=== PATIENT | male | born 1945 | race Caucasian/White ===

== ENCOUNTER 2018-09-13 00:15 | Inpatient (IN) | payer MEDICARE ==
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
[2018-09-13] MEDS ORDERED: ASPIRIN81 MG PO (02:32)
[2018-09-13] MEDS ORDERED: COREG 3.1253.125 MG PO (02:33)
[2018-09-13] MEDS ORDERED: CELEXA10 MG PO (02:33)
[2018-09-13] MEDS ORDERED: FOLATE0.4 MG PO (02:35)
[2018-09-13] MEDS ORDERED: FLUTICASONE PRO16 GM NASAL (02:35)
[2018-09-13] MEDS ORDERED: LISINOPRIL2.5 MG PO (02:36)
[2018-09-13] MEDS ORDERED: CLARITIN 10 MG10 MG PO (02:36)
[2018-09-13] MEDS ORDERED: VITAMIN D31000 UNIT PO (02:37)
[2018-09-13] MEDS ORDERED: TRAZODONE HCL150 MG PO (02:37)
[2018-09-13 06:13] LABS: BASOPHILS 0.2 % (0-2); EOSINOPHILS 6.3 % (0-7); HEMATOCRIT 34.8 % (42.0-54.0); HEMOGLOBIN 11.5 g/dL (13.5-17.5); LYMPHOCYTES 44.6 % (15-50); MCH 29.3 pg (26.0-34.0); MCV 88.8 fL (80.0-100.0); MEAN PLATELET VOLUME 10.3 fL (7.4-10.4); MONOCYTES 7.5 % (2-11); NEUTROPHILS 41.4 % (40-80); PLATELET COUNT 184 10x3/uL (130-400); RBC 3.92 10x6/uL (4.20-6.10); RDW 16.5 % (11.5-14.5)
[2018-09-13 06:36] LABS: ALBUMIN 2.9 g/dL (3.4-5.0); BILIRUBIN - TOTAL 0.55 mg/dL (0.2-1.3); CALCIUM 8.8 mg/dL (8.5-10.1); CARBON DIOXIDE 25.9 mmol/L (21.0-32.0); CHOL - HDL RATIO 4.4 ratio (2.3-4.9); CREATININE - SERUM 1.2 mg/dL (0.6-1.3); LDL-HDL RATIO 2.7 ratio (1.5-3.5); POTASSIUM - SERUM 3.9 mmol/L (3.5-5.1); PROTEIN - SERUM 6.7 g/dL (6.4-8.2); THYROID STIMULATING HORMONE 3.05 uIU/mL (0.36-3.74)
[2018-09-13 07:00] VITALS: BP 125/64
--- NOTE | 2018-09-13 07:30 | NUR ---
REC'D PT STANDING BY THE NURSES DESK. PT IS ALERT AND ORIENTED TO PERSON. PT BECOMES AGGRESSIVE WITH STAFF EASILY AT TIMES. PT IS VERY CONFUSED. CALM AND COOPERATIVE WITH ASSESSMENT AT THIS TIME. MED COMPLIANT. FALL PRECAUTIONS IN PLACE. WILL CPOC.
[2018-09-13 08:22] VITALS: BP 125/64
--- NOTE | 2018-09-13 13:39 | NUR ---
PATIENT BECAME VERBALLY AGGRESSIVE WITH STAFF. PACING, CURSING AT STAFF, ATTEMPTING TO ELOPE FROM UNIT. STAFF ATTEMPT TO REDIRECT PATIENT. PATIENT UNREDIRECTABLE AT THIS TIME. ATIVAN 0.2 MG AND HALDOL 2 MG IM IN LDG PER DR. CUMMINS ORDER. WILL REASSESS Q 1 HOUR FOR EFFECTIVENESS.
--- NOTE | 2018-09-13 14:30 | NUR ---
PRN MILDLY EFFECTIVE. PT IS CALMER AT THIS TIME SITTING AT DINING ROOM TABLE LOOKING AT NEWSPAPER. WILL CPOC.
[2018-09-13 20:56] VITALS: BP 124/50
--- NOTE | 2018-09-14 00:56 | NUR ---
RECEIVED IN DAYROOM. SITTING IN A CHAIR WITH PEERS AT HIS SIDE. CONFUSED. NO SIGNS OF AGGRESSION. CALM AND COOPERATIVE WITH CARE AND ASSESSMENT. REDIRECT AND REORIENT NEEDED. RESTING IN BED WITH EYES CLOSED AT THIS TIME. CONTINUE PLAN OF CARE
[2018-09-14 07:41] VITALS: BMI 22.8
[2018-09-14 09:52] VITALS: BMI 22.8
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
--- NOTE | 2018-09-14 16:33 | NUR ---
HALDOL 2 MG AND ATIVAN 0.5 MG IM GIVEN FOR AGGRESSION OF HITTING STAFF WITH REDIRECTION.
--- NOTE | 2018-09-14 19:54 | NUR ---
RECEIVED IN DAYROOM. RESTING IN A CHAIR WITH PEERS AT HIS SIDE. CALM AND COOPERATIVE WITH CARE AND ASSESSMENT. NO SIGNS OF AGGRESSION. REDIRECT AND REORIENT NEEDED. SITTING QUIETLY AT THIS TIME. CONTINUE PLAN OF CARE
[2018-09-14 20:00] VITALS: BP 124/56
[2018-09-15 05:12] LABS: VITAMIN D 25 HYDROXY 25.9 ng/mL (30.0-100.0)
[2018-09-15 07:21] LABS: RAPID PLASMA REAGIN Non Reactive (Non Reactive)
[2018-09-15 08:30] VITALS: BP 132/65
--- NOTE | 2018-09-15 11:55 | NUR ---
RECEIVED PATIENT IN DINING ROOM, SITTING ON COUCH, EYES CLOSED, AROUSES EASILY TO VERBAL STIMULI, NO AGGRESSION NOTED. MEDS ADMIN PER MED NURSE. COOPERATIVE WITH CARE AND GROUP THERAPY. CONT POC INCLUDING MEDS AND GROUP THERAPY DIRECTED.
--- NOTE | 2018-09-15 13:17 | PN ---
PATIENT:JAYLAN ORNELAS MEDICAL RECORD: [id number] LOCATION:SHOBHA Perera ADMISSION DATE: 09/13/18 PROGRESS NOTE DATE OF SERVICE: 09/14/2018 SUBJECTIVE: The patient's case was discussed with staff. He has no new complaint. OBJECTIVE: The patient denies intent to harm himself or others. He does tolerate his medicines well. ASSESSMENT: Senile dementia of the Alzheimer's type with behavioral disturbances. PLAN: The patient will be maintained on current medicines, which have been reviewed. His long-term prognosis is guarded. Both supportive and educational interventions were made. I am going to give him a low dose of Klonopin in addition to his scheduled medicines to assist with his agitation. TRANSINT:[id number] Voice Confirmation ID: [id number] DOCUMENT ID: [id number] WAYLON CUMMINS MD at 1317 CC: [id number] DICTATION DATE: 09/14/18 1617 PRESCHOOL PRINCIPAL: 09/14/18 1908 ADM IN [facility] [address] [place] [address]
[2018-09-15 17:08] LABS: FOLATE (FOLIC ACID) - SERUM 16.5 ng/mL (>3.0)
[2018-09-15 20:00] VITALS: BP 115/55
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
--- NOTE | 2018-09-15 23:30 | NUR ---
RESTING IN A RECLINER OUTSIDE OF NURSES STATION WITH EYES CLOSED AT THIS TIME.
--- NOTE | 2018-09-16 10:00 | NUR ---
AWAKE AND ALERT WITH CONFUSION NOTED. CALM AND COOPERATIVE WITH CARE AND ASSESSMENT. MEDICATION COMPLIANT. NO AGGRESSION NOTED. REDIRECT AND REORIENTED NEEDED. WILL CONTINUE PLAN OF CARE.
[2018-09-16 10:16] VITALS: BP 136/65
--- NOTE | 2018-09-16 13:27 | PN ---
PATIENT:JAYLAN ORNELAS MEDICAL RECORD: [id number] LOCATION:SHOBHA Perera ADMISSION DATE: 09/13/18 PROGRESS NOTE DATE OF SERVICE: 09/15/2018 SUBJECTIVE: The patient's case was discussed with staff. He has no new complaint. OBJECTIVE: The patient denies intent to harm himself or others. He is tolerating his medicines well. He is eating adequately. He did require p.r.n. medication yesterday because of some agitation, but seems calmer today. ASSESSMENT: Senile dementia of the Alzheimer's type with behavioral disturbances. PLAN: The patient is going to be treated with a low dose of Trilafon to assist with thought disorganization. He will be monitored for clinical changes associated with its use. TRANSINT:[id number] Voice Confirmation ID: [id number] DOCUMENT ID: [id number] WAYLON CUMMINS MD at 1327 CC: [id number] DICTATION DATE: 09/15/18 1331 RETAIL SALES ADVISOR: 09/15/18 1404 ADM IN [id number] [place] [address]
--- NOTE | 2018-09-16 16:52 | NUR ---
ATIVAN 0.5 MG AND HALDOL 2 MG IM GIVEN FOR AGRESSION, HITTING AND SCRATCHING STAFF WITH REDIRECTION. HE IS PACING AROUND THE UNIT.
--- NOTE | 2018-09-16 20:52 | NUR ---
PATIENT IS CONFUSED, AGGRESSIVE AT TIMES, PT. ON NEURO CHECKS THIS EVENING UNTIL 2144, NEURO IS NORMAL. COMPLIANT WITH MEDS. WILL FOLLOW POC
[2018-09-16 21:07] VITALS: BP 101/52
--- NOTE | 2018-09-17 11:24 | NUR ---
B) The patient is awake and alert, he has poor insight into his situation. He is oriented to himself. I) Provide prescribed meds. R) He ambulates fast at times and has nearly fallen from loss of balance. He is compliant with meds. P) Continue POC.
--- NOTE | 2018-09-17 13:07 | NUR ---
The patient was leaning over close to the floor, he was inches away from the floor and he hit his head. He does have a red area to the top of his head on the left side.
--- NOTE | 2018-09-17 13:22 | NUR ---
Called Dr. Maurer did let him be aware of the patient's fall, also called Duarte Aguilar and left a message.
--- NOTE | 2018-09-17 14:55 | PN ---
PATIENT:JAYLAN ORNELAS MEDICAL RECORD: [id number] LOCATION:SHOBHA Perera ADMISSION DATE: 09/13/18 PROGRESS NOTE DATE OF SERVICE: 09/16/2018 SUBJECTIVE: The patient's case was discussed with staff. He has no new complaint. OBJECTIVE: The patient denies intent to harm himself or others. He is tolerating his medicines reasonably well. He is very poorly oriented. ASSESSMENT: No change in diagnoses. PLAN: The patient did require p.r.n. medication yesterday. With the changes that have been made since admission, I do not think they have had an opportunity to become effective fully, but I think that the Trilafon is not going to be sufficiently strong to control his behaviors, so I am going to discontinue it and start him on a low dose of Geodon for his disruptive behaviors. It will be my plan to gradually taper him off of the Klonopin and treat him with the Geodon for his behavior problems. TRANSINT:[id number] Voice Confirmation ID: [id number] DOCUMENT ID: [id number] WAYLON CUMMINS MD at 1455 CC: [id number] DICTATION DATE: 09/16/18 1330 LOGISTICS INTERN: 09/16/18 1340 ADM IN [id number] [place] [address]
--- NOTE | 2018-09-17 15:29 | NUR ---
The patient is getting agitated, he wants to get up and walk, but he has fallen today. Ativan 0.5 mg PO provided at this time to help him with his anxiety.
--- NOTE | 2018-09-17 16:00 | NUR ---
The patient is not showing any aggression at this time. He is calmer now.
[2018-09-17 20:43] VITALS: BP 115/52
--- NOTE | 2018-09-17 22:13 | NUR ---
PATIENT IS CONFUSED, AGGRESSIVE AT TIMES, CALM AT THIS TIME, DUE TO HAVING HAD A "PRN" EARLIER. ASSISTED WITH BEDTIME ROUTINE. COMPLIANT WITH MEDS. WILL FOLLOW POC
--- NOTE | 2018-09-18 07:20 | NUR ---
B) The patient is awake and alert, he is ambulating. He is oriented to name only and has poor insight into his situation. He is more steady this am. He is not bending over and walking fast today. He is calm and not showing aggression today. I) Provide prescribed meds. R) The patient is compliant with meds. P) Continue POC.
[2018-09-18 09:40] VITALS: BP 105/61
--- NOTE | 2018-09-18 12:46 | NUR ---
The patient is awake and he has been calm and pleasant for all of the morning. He is now becoming agitated without any provocation. He did try to open the Occupational Health Nurse Supervisor door and the Outcomes Specialist door. The MHT walked by him and he swung at her. Dwain Myers RN asked him how he is doing and he said "F-off." He came to the day room and told this nurse to "F-off." He did not want to be redirected or settle down. Before he became more aggressive did provide him Ativan 0.5 mg and Haldol 2 mg IM.
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
--- NOTE | 2018-09-18 15:38 | PN ---
PATIENT:JAYLAN ORNELAS MEDICAL RECORD: [id number] LOCATION:SHOBHA Perera ADMISSION DATE: 09/13/18 PROGRESS NOTE DATE OF SERVICE: 09/17/2018 SUBJECTIVE: The patient's case was discussed with staff. He has no new complaint. OBJECTIVE: The patient is sleeping reasonably well. He has not been agitated or aggressive today, but I think he may be slightly sedated. ASSESSMENT: Senile dementia of the Alzheimer's type with behavioral disturbances. PLAN: I am going to discontinue the patient's trazodone and may well reduce or even change the scheduled Geodon tomorrow. TRANSINT:[id number] Voice Confirmation ID: [id number] DOCUMENT ID: [id number] WAYLON CUMMINS MD at 1538 CC: [id number] DICTATION DATE: 09/17/18 1509 MANAGER SHIPPING: 09/17/18 1532 ADM IN [facility] [address] [place] [address]
[2018-09-18 20:28] VITALS: BP 98/50
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
--- NOTE | 2018-09-19 08:48 | NUR ---
B) The patient is still sleepy this am from a prn he received last shift. He is calm this am, he only knows his name. He has poor insight into his situation. He ambulates but needs assist as he is unsteady. He refuses a walker and does not want assist most of the time. I) Provide prescribed meds. R) The patient is compliant with meds. P) Continue POC.
[2018-09-19 09:29] VITALS: BP 133/55
--- NOTE | 2018-09-19 11:54 | PN ---
PATIENT:JAYLAN ORNELAS MEDICAL RECORD: [id number] LOCATION:SHOBHA Perera ADMISSION DATE: 09/13/18 PROGRESS NOTE DATE OF SERVICE: 09/18/2018 SUBJECTIVE: The patient's case was discussed with staff. He has no new complaint. OBJECTIVE: The patient denies intent to harm himself or others. He tolerates his medicines reasonably well. Unfortunately, he was agitated earlier today and did receive p.r.n. medication. That would be the first time in several days and so I am going to treat it as an isolated event unless it happens again. ASSESSMENT: Senile dementia of the Alzheimer's type with behavioral disturbances. PLAN: Current medicines and therapies have been reviewed and will be maintained. TRANSINT:[id number] Voice Confirmation ID: [id number] DOCUMENT ID: [id number] WAYLON CUMMINS MD at 1154 CC: [id number] DICTATION DATE: 09/18/18 1621 DIRECTOR SPECIAL EDUCATION: 09/18/18 2254 ADM IN [id number] [place] [address]
--- NOTE | 2018-09-20 00:13 | NUR ---
B.) Patient is more pleasant today. No signs of aggression toward staff members. I.) Provided PM medications. Educated on avoiding falls. R.) Patient consented to all PM Medications. P.) Continue Plan of Care
[2018-09-20 07:00] VITALS: BP 105/56
--- NOTE | 2018-09-20 13:01 | PN ---
PATIENT:JAYLAN ORNELAS MEDICAL RECORD: [id number] LOCATION:SHOBHA Perera ADMISSION DATE: 09/13/18 PROGRESS NOTE DATE OF SERVICE: 09/19/2018 SUBJECTIVE: The patient's case was discussed with staff. He has no new complaint. OBJECTIVE: The patient is in good behavioral control with limited insight about his condition. He is sleeping and eating reasonably well. ASSESSMENT: Senile dementia of the Alzheimer's type with behavioral disturbances. PLAN: Current medicines and therapies have been reviewed, both will be maintained. Long-term prognosis is guarded. TRANSINT:[id number] Voice Confirmation ID: [id number] DOCUMENT ID: [id number] WAYLON CUMMINS MD at 1301 CC: [id number] DICTATION DATE: 09/19/18 1202 STEEL PLACER: 09/19/18 1234 ADM IN [id number] [place] [address]
--- NOTE | 2018-09-20 18:12 | NUR ---
ORIENTED TO SELF ONLY.FREQUENTLY OBSERVED SMILING.NO AGGRESSION OBSERVED TODAY.COMPLIANT WITH STAFF AND MEDS.WILL CONTINUE WITH PLAN OF CARE,MONITOR FOR CHANGES AND SAFETY.
[2018-09-20 23:14] VITALS: BP 130/80
--- NOTE | 2018-09-20 23:25 | NUR ---
B.) Patient has been pleasant. Patient is alert and oriented to person and situation. I.) Provided PM medications. R.) Compliant with PM medications. P.) Continue Plan of Care
[2018-09-21 07:00] VITALS: BP 108/56
--- NOTE | 2018-09-21 09:00 | NUR ---
PATIENT IS AWAKE AND ORIENTED TO SELF ONLY. CALM AND COOPERATOVE WITH CARE AND ASSESSMENT. MEDIOCATION COMPLIANT. WILL CONTINUE PLAN OF CARE.
--- NOTE | 2018-09-21 12:22 | NUR ---
Nutrition follow up Regular diet with 56% average po intake past 3 days Pt usually eats well however pt had 0% documented for all meals on 09/19 Weight 141lb-stable BM yesterday RD following
--- NOTE | 2018-09-21 15:13 | PN ---
PATIENT:JAYLAN ORNELAS MEDICAL RECORD: [id number] LOCATION:SHOBHA Perera ADMISSION DATE: 09/13/18 PROGRESS NOTE DATE OF SERVICE: 09/20/2018 SUBJECTIVE: The patient's case was discussed with staff. He has no new complaint. OBJECTIVE: The patient is tolerating his medicines well. He has no thoughts of harming himself or others. ASSESSMENT: Senile dementia of the Alzheimer's type. PLAN: Current medicines have been reviewed and will be maintained. Long-term prognosis is guarded. TRANSINT:[id number] Voice Confirmation ID: [id number] DOCUMENT ID: [id number] WAYLON CUMMINS MD at 1513 CC: [id number] DICTATION DATE: 09/20/18 1303 SALES OPERATIONS SPECIALIST: 09/20/18 1640 [facility] IN [address] [place] [address]
--- NOTE | 2018-09-21 20:19 | NUR ---
RECEIVED IN DAYROOM. WALKING ABOUT SOCIALIZING. VERY CONFUSED. CALM AND COOPERATIVE WITH CARE AND ASSESSMENT. NO SIGNS OF AGGRESSION. REDIRECT AND REORIENT NEEDED. CONTINUES TO WALK ABOUT. CONTINUE PLAN OF CARE
[2018-09-22 05:15] VITALS: BP 117/62
--- NOTE | 2018-09-22 11:00 | NUR ---
PATIENT IS AWAKE AND ALERT TO PERSON ONLY. PLEASANT AND COOPERATIVE WITH CARE AND ASSESSMENT. NO AGGRESSION NOTED. MEDICATION COMPLIANT. REDIRECT AND REORIENT NEEDED. WILL CONTINUE PLAN OF CARE.
[2018-09-22 11:56] VITALS: BP 111/60
--- NOTE | 2018-09-22 15:19 | PN ---
PATIENT:JAYLAN ORNELAS MEDICAL RECORD: [id number] LOCATION:SHOBHA Perera ADMISSION DATE: 09/13/18 PROGRESS NOTE DATE OF SERVICE: 09/21/2018 SUBJECTIVE: The patient's case was discussed with staff. He has no new complaint. OBJECTIVE: The patient is in good behavioral control, but has been somewhat hypotensive. He is presenting a significant increased risk of falling. ASSESSMENT: Senile dementia of the Alzheimer's type with behavioral disturbances. PLAN: Current medicines and therapies have been reviewed and will be maintained. I have asked nursing staff to discuss the hypotension problem with his primary care doctor and I am sure that there will be something addressed with his blood pressure medicine. TRANSINT:[id number] Voice Confirmation ID: [id number] DOCUMENT ID: [id number] WAYLON CUMMINS MD at 1519 CC: [id number] DICTATION DATE: 09/21/18 1526 BULL GANG SUPERVISOR: 09/21/18 [address] [facility] [address] [place] [address]
--- NOTE | 2018-09-22 20:10 | NUR ---
RECEIVED IN BEDROOM. RESTING ON THE BED WITH EYES OPEN. CALM AND COOPERATIVE WITH CARE AND ASSESSMENT. NO SIGNS IF AGGRESSION. REDIRECT AND REORIENT NEEDED. CONTINUES TO REST QUIETLY IN HIS ROOM. CONTINUE PLAN OF CARE
[2018-09-23 01:35] VITALS: BP 110/54
[2018-09-23 09:10] VITALS: BP 101/71
--- NOTE | 2018-09-23 12:39 | PN ---
PATIENT:JAYLAN ORNELAS MEDICAL RECORD: [id number] LOCATION:SHOBHA Perera ADMISSION DATE: 09/13/18 PROGRESS NOTE DATE OF SERVICE: 09/22/2018 SUBJECTIVE: The patient's case was discussed with staff. He has no new complaint. OBJECTIVE: The patient is tolerating his medicines well. He is not over sedated. ASSESSMENT: Senile dementia of the Alzheimer's type with behavioral disturbances. PLAN: Current medicines have been reviewed. I am going to increase the dose of Celexa to 20 mg daily. He will be monitored for clinical changes associated with its use. TRANSINT:[id number] Voice Confirmation ID: [id number] DOCUMENT ID: [id number] WAYLON CUMMINS MD at 1239 CC: [id number] DICTATION DATE: 09/22/18 1525 COOLER TENDER: 09/22/18 193 ADM IN [facility] [address] [id number]
[2018-09-23 20:00] VITALS: BP 113/43
--- NOTE | 2018-09-24 01:48 | NUR ---
B) Patient is alert and oriented to self, wanders and follows staff at times, loose associations, I) Administered scheduled medications as ordered, redirected as needed, R) mediation compliant, sleeping quietly in his bed, P) Continue plan of care.
--- NOTE | 2018-09-24 08:21 | PN ---
PATIENT:JAYLAN ORNELAS MEDICAL RECORD: [id number] LOCATION:SHOBHA Perera ADMISSION DATE: 09/13/18 PROGRESS NOTE DATE OF SERVICE: 09/23/2018 SUBJECTIVE: The patient's case was discussed with staff. He has no new complaint. OBJECTIVE: The patient denies intent to harm himself or others. He is tolerating his medicines well. ASSESSMENT: Senile dementia of the Alzheimer's type with behavioral disturbances. PLAN: Current medicines and therapies have been reviewed, both will be maintained. His long-term prognosis is guarded. TRANSINT:[id number] Voice Confirmation ID: [id number] DOCUMENT ID: [id number] WAYLON CUMMINS MD at 0821 CC: [id number] DICTATION DATE: 09/23/18 1400 TRANSMITTER TESTER: 09/23/18 1430 ADM IN [id number] [place] [address]
--- NOTE | 2018-09-24 08:45 | NUR ---
PATIENT MONITORED DURING B'FAST. ALL PLASTIC EATING UTENSILS PRESENT AND ACCOUNTED FOR FOLLOWING BREAKFAST.
--- NOTE | 2018-09-24 09:44 | NUR ---
RECEIVED PATIENT IN DINING ROOM FOR B'FAST, ALERT, CALM, COOPERATIVE, CONFUSED. MEDS ADMIN PER ORDERS WITH COMPLETE MED COMPLIANCE NOTED. COOPERATIVE WITH PLAN OF CARE AND STAFF REQUESTS. CONT CURRENT PLAN OF CARE DIRECTED.
[2018-09-24 09:53] VITALS: BP 123/56
--- NOTE | 2018-09-24 13:04 | NUR ---
PATIENT'S EATING UTENSILS MONITORED AND ARE ALL ACCOUNTED FOR AFTER LUNCH WAS COMPLETED. STAFF CONT TO MONITOR MEALS.
[2018-09-24] MEDS ORDERED: CELEXA20 MG PO (15:28)
[2018-09-24] MEDS ORDERED: KLONOPIN0.5 MG PO (15:29)
[2018-09-24] MEDS ORDERED: GEODON20 MG PO (15:29)
[2018-09-24 20:00] VITALS: BP 137/61
--- NOTE | 2018-09-24 22:27 | NUR ---
B) Patient is alert and oriented to self, restless and wandering at times, conforntational with staff at times, I) Administered scheduled medications as ordered, redirected as needed, monitored for safety R) Mediation compliant, complete change 20 minutes after HS meds, friendly, smiling and joking with staff P) Continue plan of care.
[2018-09-25 07:36] VITALS: BP 124/60
--- NOTE | 2018-09-25 08:00 | NUR ---
B) The patient is in a good mood this am, he is smiling and speaking to staff and peers, although, he is nonsensical at times. He is oriented to self. I) Provide prescribed meds, redirect as needed. R) The patient is compliant with meds and unit milieu. P) Continue POC.
--- NOTE | 2018-09-25 10:13 | NUR ---
Report called to [facility] [facility], the patient just got picked up by the [employer] van and he is assisted by skilled nursing staff. A hard copy of d/c orders are provided to the regional driver and his belongings are packed and given to the regional driver.
--- NOTE | 2018-09-25 15:15 | PN ---
PATIENT:JAYLAN ORNELAS MEDICAL RECORD: [id number] LOCATION:SHOBHA Perera ADMISSION DATE: 09/13/18 PROGRESS NOTE DATE OF SERVICE: 09/24/2018 SUBJECTIVE: The patient's case was discussed with staff. He has no new complaint. OBJECTIVE: The patient is in good behavioral control. He is quite confused. ASSESSMENT: Senile dementia of the Alzheimer's type with behavioral disturbances. PLAN: Current medicines have been reviewed and will be maintained. Long-term prognosis is guarded. I anticipate the patient can be transitioned out of the hospital tomorrow if this level of improvement continues. TRANSINT:[id number] Voice Confirmation ID: [id number] DOCUMENT ID: [id number] WAYLON CUMMINS MD at 1515 CC: [id number] DICTATION DATE: 09/24/18 1527 AGENCY OWNER: 09/24/18 1621 DIS IN 09/25/18 [facility] [address] [place] [address]
--- NOTE | 2018-09-26 11:17 | PN ---
PATIENT:JAYLAN ORNELAS MEDICAL RECORD: [id number] LOCATION:SHOBHA Perera ADMISSION DATE: 09/13/18 PROGRESS NOTE DATE OF SERVICE: 09/25/2018 SUBJECTIVE: The patient's case was discussed with staff. He has no new complaint. OBJECTIVE: The patient is in good behavioral control. He has no thoughts of harming himself or others. ASSESSMENT: Senile dementia of the Alzheimer's type with behavioral disturbances. The patient will be or may actually already have been transitioned out of the hospital into the [facility]. I do think he presents an acute risk to others. Followup will be with his primary care physician. TRANSINT:[id number] Voice Confirmation ID: [id number] DOCUMENT ID: [id number] WAYLON CUMMINS MD at 1117 CC: [id number] DICTATION DATE: 09/25/18 1523 BASIC SCIENCES DEAN: 09/25/18 1545 DIS IN 09/25/18 [facility] [address] [place] [address]
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
== END 2018-09-25 11:00 | DRG 57 ==
LOC: D.PSYCH 00:15
PROVIDERS: ADMIT Psychiatry & Neurology Psychiatry; ATTEND Psychiatry & Neurology Psychiatry
DX: G30.1 Alzheimer's disease with late onset (principal); F02.81 Dementia in other diseases classified elsewhere, unspecified severity, with behavioral disturbance; I10 Essential (primary) hypertension; M54.9 Dorsalgia, unspecified; G89.29 Other chronic pain; F32.9 Major depressive disorder, single episode, unspecified; J31.0 Chronic rhinitis; E55.9 Vitamin D deficiency, unspecified; T18.0XXA Foreign body in mouth, initial encounter

== ENCOUNTER → 2018-11-09 13:11 | Outpatient (CLI) | payer OTHER ==
[~2018-11-09 13:11] MED LIST: ACETAMINOPHEN325 MG PO; ADVIL200 MG; ASPIRIN81 MG PO; CELEXA10 MG PO; CELEXA20 MG PO; CLARITIN 10 MG10 MG PO; COREG 3.1253.125 MG PO; DEPAKOTE500 MG PO; FLUTICASONE PRO16 GM NASAL; FOLATE0.4 MG PO; GABAPENTIN100 MG PO; GEODON20 MG PO; KLONOPIN0.5 MG PO; LISINOPRIL2.5 MG PO; MEGACE40 MG PO; TRAZODONE HCL150 MG PO; VITAMIN D31000 UNIT PO; ZYLOPRIM100 MG PO
== END | disposition home or self-care (01) ==
LOC: D.RAD 13:00
PROVIDERS: ATTEND Legal Medicine
DX: R13.10 Dysphagia, unspecified (principal)

== ENCOUNTER 2018-12-04 01:15 | Emergency (ER) | payer OTHER ==
[~2018-12-04 01:15] MED LIST changes: -ACETAMINOPHEN325 MG PO; -ADVIL200 MG; -DEPAKOTE500 MG PO; -GABAPENTIN100 MG PO; -MEGACE40 MG PO; -ZYLOPRIM100 MG PO
[2018-12-04 01:22] VITALS: Ht 170.2 cm
[2018-12-04 02:02] LABS: BASOPHILS 0.1 % (0-2); EOSINOPHILS 0.2 % (0-7); HEMATOCRIT 35.6 % (42.0-54.0); HEMOGLOBIN 12.1 g/dL (13.5-17.5); IMMATURE GRANULOCYTES 0.2 % (0-5); LYMPHOCYTES 13.5 % (15-50); MCH 30.3 pg (26.0-34.0); MCV 89.2 fL (80.0-100.0); MEAN PLATELET VOLUME 10.6 fL (7.4-10.4); MONOCYTES 10.5 % (2-11); NEUTROPHILS 75.5 % (40-80); RBC 3.99 10x6/uL (4.20-6.10); RDW 15.2 % (11.5-14.5); WBC 10.2 10x3/uL (4.8-10.8)
[2018-12-04 02:04] LABS: PLATELET COUNT 286 10x3/uL (130-400)
[2018-12-04] MEDS ORDERED: ZYLOPRIM100 MG PO (02:15)
[2018-12-04] MEDS ORDERED: DEPAKOTE500 MG PO (02:16)
[2018-12-04 02:17] LABS: ALBUMIN 2.4 g/dL (3.4-5.0); ANION GAP 13.7 mmol/L (8-16); BILIRUBIN - TOTAL 0.71 mg/dL (0.2-1.3); CALCIUM 8.5 mg/dL (8.5-10.1); CARBON DIOXIDE 28.6 mmol/L (21.0-32.0); CREATININE - SERUM 1.1 mg/dL (0.6-1.3); POTASSIUM - SERUM 4.3 mmol/L (3.5-5.1); PROTEIN - SERUM 6.4 g/dL (6.4-8.2)
[2018-12-04] MEDS ORDERED: GABAPENTIN100 MG PO (02:17)
[2018-12-04] MEDS ORDERED: ADVIL200 MG (02:19)
[2018-12-04] MEDS ORDERED: MEGACE40 MG PO (02:21)
[2018-12-04] MEDS ORDERED: ACETAMINOPHEN325 MG PO (02:22)
[2018-12-04 02:50] LABS: APPEARANCE CLEAR (CLEAR); BILIRUBIN NEGATIVE (NEGATIVE); COLOR DK YELLOW (YELLOW); GLUCOSE NEGATIVE (NEGATIVE); KETONE SMALL mg/dL (NEGATIVE); NITRITE POSITIVE (NEGATIVE); PROTEIN 1+ mg/dL (NEGATIVE); UROBILINOGEN NORMAL (NORMAL)
[2018-12-04 02:51] LABS: BACTERIA MODERATE /hpf (NONE SEEN); EPITHELIAL CELLS 0-5 /hpf (0-5); RED CELLS - URINE 0-5 /hpf (0-5)
[2018-12-04 06:54] VITALS: BP 123/72
== END 2018-12-04 06:30 | disposition other institution (70) ==
LOC: D.ER 01:15
PROVIDERS: Family Medicine
DX: S72.142A Displaced intertrochanteric fracture of left femur, initial encounter for closed fracture (principal); X58.XXXA Exposure to other specified factors, initial encounter; Y93.89 Activity, other specified; Y92.129 Unspecified place in nursing home as the place of occurrence of the external cause; E86.0 Dehydration; F03.90 Unspecified dementia, unspecified severity, without behavioral disturbance, psychotic disturbance, mood disturbance, and anxiety; E87.0 Hyperosmolality and hypernatremia

== ENCOUNTER 2018-12-29 15:01 | Emergency (ER) | payer OTHER ==
[~2018-12-29] VITALS: Ht 170.2 cm; Wt 52.3 kg
[~2018-12-29 15:01] MED LIST changes: +ACETAMINOPHEN325 MG PO; +ADVIL200 MG; +DEPAKOTE500 MG PO; +GABAPENTIN100 MG PO; +MEGACE40 MG PO; +ZYLOPRIM100 MG PO
[2018-12-29 15:04] VITALS: Ht 170.2 cm; Wt 52.3 kg
[2018-12-29 17:42] VITALS: BP 141/66
== END 2018-12-29 17:40 ==
LOC: D.ER 15:01
DX: S09.90XA Unspecified injury of head, initial encounter (principal); W19.XXXA Unspecified fall, initial encounter